=== PATIENT | female | born 1945 | race Caucasian/White ===

== ENCOUNTER 2020-02-17 09:38 | Outpatient (CLI) | payer MEDICARE ==
[2020-02-17] MEDS ORDERED: Iopamidol 300 61% 50 ML VIAL FS ONE (10:55)
[2020-02-17] MEDS ORDERED: Lidocaine 1% PF 10 ML AMP ONE (10:55)
[2020-02-17] MEDS ORDERED: EPINEPHrine 1 MG/ML AMP ONE (10:55)
--- NOTE | 2020-02-17 12:08 | RAD ---
LEFT SHOULDER ARTHROGRAM: HISTORY: Left shoulder pain. EXPOSURE: 1.1 minutes, 195.9 mGy*^m2. FINDINGS: Learning Strategist 3 views left shoulder demonstrate mild degenerative change. No fractures or dislocation. Visual ized left ribs and lung did not demonstrate an acute abnormality. Successful left shoulder arthrogram. A total of 12 cc of the contrast admixture was administered in t he joint space. No immediate or postprocedural complications. TECHNIQUE: Consent was obtained to perform a left shoulder arthrogram. Left shoulder was prepped and draped in a sterile fashion. 1% lidocaine, buffered with sodium bicarbonate was used for local anesthesia. Under fluoroscopic guidance, 22-gauge spinal needle was advanced into the joint space. A total of 12 cc of the contrast admixture was administered into the joint space. The patient tolerated the procedure well. No immediate or post procedure complications. IMPRESSION: Successful left shoulder arthrogram. Refer to separate post arthrogram CT for further detail. Transcribed Date/Time: 02/17/2020 12:48 PM
--- NOTE | 2020-02-17 13:30 | CT ---
CT ARTHROGRAM OF THE LEFT SHOULDER: 02/17/20 INDICATION: Left shoulder pain. COMPARISON: Left shoulder arthrogram radiograph dated 02/16/19. TECHNIQUE: Multiple CT images were obtained in the left shoulder following intra-articular administration of a d ilute Isovue solution. Please see the left shoulder arthrogram report for full details concerning the injection technique. FINDINGS: Glenohumeral articular surface is normal appearing. The rotator cuff is intact. No muscular atrophy i s evident. Biceps tendon is located. Visualized biceps anchor complex appears intact. No definite par alabral cyst is noted. No intra-articular body is demonstrated. Visualized left lung demonstrates moira cified granuloma in the left upper lobe. There is mild AC joint osteoarthrosis. IMPRESSION: 1. No full thickness rotator cuff tear. 2. Mild left AC joint osteoarthrosis. POS: C
== END 2020-02-17 09:39 | disposition home or self-care (01) ==
LOC: RAD 09:38
PROVIDERS: ATTEND Orthopaedic Surgery
DX: M25.512 Pain in left shoulder (principal); M19.012 Primary osteoarthritis, left shoulder
CPT/HCPCS: 23350; J0171; J2001; Q9967

== ENCOUNTER 2020-09-25 12:28 | Emergency (ER) | payer MEDICARE ==
[2020-09-25] MEDS ORDERED: Morphine 4 MG/ML VIAL ONE (12:46)
[2020-09-25] MEDS ORDERED: Boostrix 0.5 ML (Tdap) VIAL ONE (12:47)
[2020-09-25] MEDS ORDERED: Ondansetron PF 4 MG/2 ML Vial ONE ×2 (12:47→14:00)
[2020-09-25] MEDS ORDERED: CEFAZOLIN 1 GM VIAL ONE (12:47)
[2020-09-25 13:34] LABS: #Eosinphils 0.1 thou/uL (0.0-0.7); #Lymphocytes 1.7 thou/uL (1.20-3.40); #Monocytes 0.8 thou/uL (0.11-0.59); #Neutrophils 8.9 thou/uL (1.40-6.50); %Basophils 0.3 % (0.0-1.0); %Eosinophils 1.1 % (0.0-10.0); %Lymphocytes 14.8 % (21.0-51.0); %Monocytes 7.1 % (0.0-10.0); %Neutrophils 76.7 % (42.0-75.0); Hemoglobin 13.1 g/dL (12.0-16.0); Mean Corpuscular HGB CONC 33.6 g/dL (32.0-36.0); Mean Corpuscular Hemoglobin 31.9 pg (27.0-31.0); Mean Corpuscular Volume 94.9 fL (78.0-98.0); Mean Platelet Volume 8.2 fL (7.4-10.4); Platelet Count 177 thou/uL (130-400); RBC Distribution Width 11.9 % (11.5-14.5); Red Blood Cell (RBC) Count 4.12 mill/uL (4.20-5.40); White Blood Cell (WBC) Count 11.7 thou/uL (4.8-10.8)
--- NOTE | 2020-09-25 13:44 | RAD ---
RIGHT FOOT 3 VIEWS: Date: 09/25/2020 HISTORY: Foot pain. FINDINGS: There are displaced fractures at the ankle. See dedicated ankle films. Tarsals, metatarsals, and phalanges appear intact. IMPRESSION: 1. Displaced ankle fractures. See dedicated ankle exam. 2. No acute foot fracture identified. POS: AGW
--- NOTE | 2020-09-25 13:45 | RAD ---
RIGHT KNEE 4 VIEWS: Date: 09/25/2020 HISTORY: Injury to ankle with ankle fracture. FINDINGS: No evidence of fracture at the knee. Joint spaces are preserved. Minimal degenerative change. IMPRESSION: No acute abnormality of the right knee. POS: AGW
[2020-09-25 13:57] LABS: ALT (SGPT) 12 U/L (8-55); AST (SGOT) 16 U/L (5-34); Albumin 3.9 g/dL (3.4-4.8); Alkaline Phosphatase 65 U/L (40-110); Anion Gap 14 mmol/L (10-20); BUN (Urea Nitrogen) 19 mg/dL (9.8-20.1); Bilirubin, Total 0.5 mg/dL (0.2-1.2); Calc. Creatinine Clearance 0 mL/min (70-130); Calcium 9.2 mg/dL (7.8-10.44); Carbon Dioxide 28 mmol/L (23-31); Chloride 103 mmol/L (98-107); Globulin 2.4 g/dL (2.4-3.5); Glucose 111 mg/dL (83-110); Potassium 3.8 mmol/L (3.5-5.1); Protein, Total 6.3 g/dL (6.0-8.3); Sodium 141 mmol/L (136-145)
[2020-09-25] MEDS ORDERED: PROPOFOL 20 ML ONE (13:59)
[2020-09-25] MEDS ORDERED: Fentanyl 100 MCG/2 ML VIAL ONE (14:40)
[2020-09-25 14:57] LABS: CKMB 2.2 ng/mL (0-6.6)
[2020-09-25 15:10] LABS: Bilirubin Negative (Negative); Blood, Urine Negative (Negative); Clarity Clear (Clear); Glucose, Urine (Dipstick) Normal (Negative); Ketone, Urine Negative (Negative); Leukocyte Negative Leu/uL (Negative); Nitrite Negative (Negative); Protein, Urine (Dipstick) Negative (Neg-Trace); Specific Gravity, Urine 1.015 (1.002-1.036); Urobilinogen Normal mg/dL (Less than 2); pH, Urine 5.5 (5.0-9.0)
--- NOTE | 2020-09-25 16:21 | RAD ---
Exam:3 views right ankle HISTORY: Status post reduction. Ankle fracture. COMPARISON: 09/25/2020 at 12:45 PM FINDINGS: External cast material has been placed. Limited evaluation for fine bony detail. Previous n oted medial malleolus and distal fibular fracture are redemonstrated. There is persistent dislocation. Alignment has slightly improved. IMPRESSION: Interval placement of casting material. Persistent dislocation. Slightly improved alignme nt.
--- NOTE | 2020-09-25 16:24 | RAD ---
Exam: Chest one view HISTORY:Preoperative exam. Comparison: 02/20/2006 FINDINGS: Cardiac silhouette: Normal Aorta: Unremarkable Pulmonary vessels: Normal Costophrenic angles: Clear LUNGS: No masses or consolidation. Pneumothorax: None Osseous abnormalities: None. Dorsal column centimeters noted. IMPRESSION: No acute cardiopulmonary process.
[2020-09-25 16:42] LABS: Troponin I 0.036 ng/mL (< 0.028)
--- NOTE | 2020-09-26 07:16 | RAD ---
Exam: Right ankle 3 views: HISTORY: Pain following injury COMPARISON: None FINDINGS: Extensive bimalleolar fracture dislocation of the right ankle with disruption of the ankle mortise. P rominent soft tissue fullness of the lower leg and ankle. IMPRESSION: Markedly displaced bimalleolar fracture dislocation right ankle.
--- NOTE | 2020-09-26 07:21 | CON ---
DATE OF CONSULTATION: 09/25/2020 CONSULTING DIAGNOSIS: Right ankle deformity. HISTORY OF PRESENT ILLNESS: Ms. Winkler is a 75-year-old female status post fall after stepping on water today in her house, date of injury 09/25/2020. Pain is rated 10/10. The patient had gross deformity of her right ankle with swelling. Was brought to the ER for higher level of care. PAST MEDICAL HISTORY: Includes hypothyroidism and hyperlipidemia. PAST SURGICAL HISTORY: Hemorrhoidectomy, cyst excision, hysterectomy, shoulder surgery, and knee surgery, Dr. Macias unspecified. ALLERGIES: CIPRO, PENICILLIN, TRAZODONE. MEDICATIONS LIST: Please see admission medication list for full details. SOCIAL HISTORY: The patient is nonsmoker and nondrinker. The patient is retired. at bedside. REVIEW OF SYSTEMS: Negative for 10-point review except as above. PHYSICAL EXAMINATION: VITAL SIGNS: The patient's vital signs are blood pressure 120/50, 87 pulse, 14 rate, and O2 saturations 94% 3 L. GENERAL: Alert and oriented female, in no acute distress. EXTREMITIES: Right lower extremity, gross deformity, medial fracture blister with sanguineous drainage. No open wounds noted. Gross deformity with translation laterally. The patient able to wiggle her toes, has brisk cap refill. Sensation grossly intact. RADIOGRAPHS: Show a bimalleolar ankle fracture with lateral displacement. LABORATORY VALUES: Today her H and H 13 and 39 and platelets 177. INR 1. Post reduction films show improved alignment on AP and lateral radiographs with application of splint for bimalleolar ankle fracture. IMPRESSION: Right bimalleolar ankle fracture with acute swelling and fracture blisters. ASSESSMENT AND PLAN: The patient underwent a closed reduction of right ankle fracture dislocation. She will be discharged home with followup this Saturday. We will plan for operative fixation right ankle fracture and delayed because she has a negative wrinkle sign, concern for her swelling and her fracture blister resolved before proceeding. She will need to be nonweightbearing on that side. She will follow up my clinic on Saturday for a skin check and we will schedule her the following week. Job ID: [id number]
--- NOTE | 2020-09-26 07:40 | OP ---
DATE OF PROCEDURE: 09/25/2020 PREOPERATIVE DIAGNOSES: Right ankle bimalleolar ankle fracture with fracture blisters, swollen skin, no open wounds. POSTOPERATIVE DIAGNOSES: Right ankle bimalleolar ankle fracture with fracture blisters, swollen skin, no open wounds. PROCEDURE PERFORMED: Closed reduction, application of side slab and posterior splint. ANESTHESIA: Dr. Rodriguez, the patient received propofol. ESTIMATED BLOOD LOSS: None. IMPLANTS: None. COMPLICATIONS: None. Application of sugar tong splint. HISTORY OF PRESENT ILLNESS: Ms. Winkler is a 75-year-old female, status post fracture dislocation of right ankle. She was consented for a right ankle closed reduction and splinting for soft tissue rest. The patient understood the risks and benefits and elected to proceed. DESCRIPTION OF PROCEDURE: After time-out was performed designating the patient's the right lower extremity as the operative site, the patient had procedural propofol. Once relaxed, we translated the calcaneus medially, reducing the ankle into position, held by the toe. We rolled on Webril, fiberglass, and a posterior and U splint and then Tj wraps, we reduced the ankle, holding constant pressure, allowed it to form. We also applied a nonadherent dressing to her medial fracture blister to ensure that it did not adhere to the cast padding. The patient had postreduction x-rays that showed good alignment. She will be discharged to home with followup this Saturday for repeat evaluation. Job ID: [id number]
== END 2020-09-25 17:21 | disposition home or self-care (01) ==
LOC: ERS 12:28
DX: S82.841B Displaced bimalleolar fracture of right lower leg, initial encounter for open fracture type I or II (principal); E03.9 Hypothyroidism, unspecified; E78.5 Hyperlipidemia, unspecified; X50.1XXA Overexertion from prolonged static or awkward postures, initial encounter
CPT/HCPCS: 27840; 36415; 51701; 71045; 80053; 81003; 82553; 84484; 85025; 85610; 87086; 90471; 90715; 93005; 96361; 96365; 96375; 96376; 99156; J0690; J2270; J2405; J2704; J3010

== ENCOUNTER 2020-10-03 07:14 | Outpatient (CLI) | payer MEDICARE ==
[2020-10-03 14:06] LABS: Anion Gap 14 mmol/L (10-20); BUN (Urea Nitrogen) 19 mg/dL (9.8-20.1); Calc. Creatinine Clearance 0 mL/min (70-130); Calcium 9.1 mg/dL (7.8-10.44); Carbon Dioxide 26 mmol/L (23-31); Chloride 106 mmol/L (98-107); Glucose 124 mg/dL (83-110); Potassium 4.2 mmol/L (3.5-5.1); Sodium 142 mmol/L (136-145)
[2020-10-03 14:12] LABS: INR-International Normal Ratio 1.1; Prothrombin Time 11.8 sec (9.5-12.1)
[2020-10-03 15:21] LABS: #Eosinphils 0.2 10x3/uL (0.0-0.5); #Monocytes 0.5 10x3/uL (0.0-1.1); #Neutrophils 7.3 10x3/uL (1.5-8.4); %Basophils 0.4 % (0.0-2.0); %Lymphocytes 14.5 % (18.0-47.0); %Monocytes 5.2 % (0.0-10.0); %Neutrophils 77.5 % (40.0-75.0); Hemoglobin 11.7 g/dL (12.0-16.0); Mean Corpuscular HGB CONC 32.8 G/DL (32.0-36.0); Mean Corpuscular Hemoglobin 30.7 PG (27.0-33.0); Mean Corpuscular Volume 93.7 fl (80.0-100.0); Mean Platelet Volume 10.5 fl (7.4-10.4); Platelet Count 231 10x3/uL (130-400); Platelet Morphology Comment Appears Adequate; RBC Distribution Width 14.4 % (11.5-14.5); RBC Morphology Normal; Red Blood Cell (RBC) Count 3.81 10x6/uL (3.90-5.20); White Blood Cell (WBC) Count 9.4 10x3/uL (4.5-11.0)
[2020-10-04 06:31] LABS: SARS-CoV-2 MS2 Positive; SARS-CoV-2 N Gene Negative; SARS-CoV-2 S Gene Negative; SARS-CoV-2 by NAA Not Detected (NotDetected); SARS-CoV-2 orf1ab Negative
== END 2020-10-03 07:15 | disposition home or self-care (01) ==
LOC: LABBT 07:14
PROVIDERS: ATTEND Orthopaedic Surgery
DX: Z01.818 Encounter for other preprocedural examination (principal); Z01.812 Encounter for preprocedural laboratory examination; S82.851A Displaced trimalleolar fracture of right lower leg, initial encounter for closed fracture; Z20.828 Contact with and (suspected) exposure to other viral communicable diseases
CPT/HCPCS: 80048; 85025; 85610; 93005; U0003; 87635; 93010

== ENCOUNTER 2020-10-06 07:45 | Day surgery (SDC) | payer MEDICARE ==
[2020-10-05 12:57] VITALS: BMI 39.6
[2020-10-06] MEDS ORDERED: Lidocaine 1% (PF) 30 ML VIAL ONE (08:29)
[2020-10-06] MEDS ORDERED: Midazolam HCl 2 mg/2 ml Vial ONE (08:29)
[2020-10-06] MEDS ORDERED: Fentanyl 100 MCG/2 ML VIAL ONE ×3 (08:29→12:59)
[2020-10-06] MEDS ORDERED: Dexmedetomidine 200 MCG/2 ML VIAL ONE (09:33)
[2020-10-06] MEDS ORDERED: Clindamycin/D5W 600 mg/50 ml Premix Bag ONE (09:38)
[2020-10-06] MEDS ORDERED: Phenylephrine 10 MG/ML VIAL ONE (09:56)
[2020-10-06] MEDS ORDERED: Fentanyl 100 MCG/2 ML VIAL IV PRN (10:10)
[2020-10-06] MEDS ORDERED: HYDROcodone/Acetaminophen 5/325 mg Tablet PO PRN ×2 (10:15)
[2020-10-06] MEDS ORDERED: Promethazine HCl 25 MG/ML VIAL IM PRN (10:15)
[2020-10-06] MEDS ORDERED: Ketorolac Tromethamine 30 MG/ML VIAL IVP PRN (10:15)
[2020-10-06] MEDS ORDERED: traMADol HCl 50 MG TAB PO PRN ×2 (10:15)
[2020-10-06] MEDS ORDERED: Ondansetron PF 4 MG/2 ML Vial IVP PRN (10:15)
[2020-10-06] MEDS ORDERED: Ropivacaine 0.2% 550 ML 550 ML NERVE BLCK SCH (10:15)
[2020-10-06] MEDS ORDERED: Zolpidem Tartrate 5 MG TAB PO PRN (10:15)
[2020-10-06] MEDS ORDERED: Dexamethasone 20 MG/5 ML VIAL ONE (11:03)
[2020-10-06] MEDS ORDERED: PROPOFOL 200 MG/20 ML VIAL ONE (11:03)
[2020-10-06] MEDS ORDERED: Ondansetron PF 4 MG/2 ML Vial ONE (11:03)
[2020-10-06] MEDS ORDERED: Lidocaine 1% PF 5 ML VIAL ONE (11:03)
[2020-10-06] MEDS ORDERED: Bupivacaine HCl 0.5%/Epinephrine 1:200,000/PF 30 ml Vial ONE (11:03)
[2020-10-06] MEDS ORDERED: Ketorolac Tromethamine 30 MG/ML VIAL ONE (11:03)
[2020-10-06] MEDS ORDERED: ePHEDrine 50 MG/ML VIAL ONE ×2 (11:03→11:44)
--- NOTE | 2020-10-06 12:36 | RAD ---
EXAM: 3 views of the right ankle HISTORY: ORIF of ankle fracture COMPARISON: 09/25/2020 FINDINGS: 3 limited intraoperative fluoroscopic views of the right ankle shows the patient is status post ORIF of the medial malleolus fracture with screws and of the lateral malleolus fracture with plates and screws. There is normal alignment of the ankle mortise. The fracture of the posterior mall eolus is difficult to visualize. IMPRESSION: Status post ORIF of ankle fracture without evidence of complication.
--- NOTE | 2020-10-06 13:09 | OP ---
DATE OF PROCEDURE: 10/06/2020 PREOPERATIVE DIAGNOSIS: Right trimalleolar ankle fracture. POSTOPERATIVE DIAGNOSIS: Right trimalleolar ankle fracture. PROCEDURE PERFORMED: Open reduction and internal fixation of right trimalleolar ankle fracture medial malleolus and nonoperative management of posterior malleolus. TOOLROOM MACHINIST: Catarino Aponte PA-C ANESTHESIOLOGIST: Jacob Rainey MD ANESTHESIA: The patient received an LMA with a single-shot saphenous. ESTIMATED BLOOD LOSS: Less than 30 mL. TOURNIQUET TIME: 62 minutes at 300 mmHg. ANTIBIOTICS: Clindamycin 600 mg. IMPLANTS: Two 4-0 cannulated screws; a 2.7 VA-LCP lateral distal fibula plate, 4-holes, right. The patient had four 2.7 locking screws placed. She had a 3.5 cortical screw that was in and out for a lag screw and she had another 3.5 cortical screw to the plate, and two more 2.7 nonlocking screws proximally. COMPLICATIONS: None. HISTORY OF PRESENT ILLNESS: Ms. Winkler is a 75-year-old female, status post ground level fall with a right ankle fracture dislocation. The patient was splinted and remained splinted until she followed up in my office. She fell on 09/25 and the patient had a fracture blister at that time. The patient presented to the ER, was closed reduced, brought into my clinic last [place] and noted to have improved fracture blister. We popped the fracture blister and allowed her skin to epithelialize. I discussed the risks and benefits of a right ankle fracture surgery to include pain, scar, bleeding, infection, damage to vital structures, decreased range of motion and strength, continued pain despite surgical intervention, need for further surgeries, loss of life or limb, and need for hardware removal. She understood the risks and benefits and elected to proceed. DESCRIPTION OF PROCEDURE: Time-out was performed designating the patient's right lower extremity as the operative site based on site, consents, and marking. After time-out was performed, the patient's tourniquet was brought up and left for a total of 62 minutes. At first, it was up for 3 minutes, then went down and then it was back up for 62 minutes, which controlled the bleeding. We made a lateral incision, which was bleeding, which took up after we controlled bleeding for 3 minutes, controlled bleeding down, and went back up for a period of time. I discussed the risks and benefits of the surgery for ORIF. She understood the risks and benefits and elected to proceed. She understood that we are going to do limited percutaneous fixation medially to try to decrease any risk of the fracture blister on that side. We had lateral incision, with which we controlled the bleeding. After we controlled the bleeding, we placed a lag screw anterior to posterior after reducing the and cleared all the hematoma. We liked the reduction, placed a distal fibular plate to help with apposition of the bone for poor bone quality, placed a 3.5 screw to compress it down to the bone, placed four 2.7 locking screws distally and two more 2.7 cortical screws proximally. We actually removed our anterior-posterior lag screw in and out. Immediately under fluoroscopic guidance, we put percutaneous pins. We actually put 3 separate pins, inserted the pins, and they were within the posterior malleolus in a good position to hold the bone in place with reduced fracture fragment giving the best reduction we can percutaneously to decrease the risk of skin and wound problems. We felt that we had good overall near anatomic reduction. We pinned it in place, over drilled and placed 40 and 36 mm 4.0 partially-threaded screws, closed the fracture, tamped down, washed, closed the skin laterally, and closed with 0 and 2-0 in skin. We placed the patient in a well-padded posterior splint. The patient will be discharged to home. She is to be nonweightbearing to her right lower extremity. Job ID: [id number] [facility]
== END 2020-10-06 14:45 | disposition home or self-care (01) ==
LOC: SDC 07:45
PROVIDERS: ATTEND Orthopaedic Surgery
PROC: 0QSG04Z Reposition Right Tibia with Internal Fixation Device, Open Approach (ICD-10-PCS; principal; 2020-10-06)
PROC: 3E0T3BZ Introduction of Anesthetic Agent into Peripheral Nerves and Plexi, Percutaneous Approach (ICD-10-PCS; 2020-10-06)
PROC: 3E0T3BZ Introduction of Anesthetic Agent into Peripheral Nerves and Plexi, Percutaneous Approach (ICD-10-PCS; 2020-10-06)
DX: S82.851A Displaced trimalleolar fracture of right lower leg, initial encounter for closed fracture (principal); G89.18 Other acute postprocedural pain; F32.9 Major depressive disorder, single episode, unspecified; M79.7 Fibromyalgia; E03.9 Hypothyroidism, unspecified; M81.0 Age-related osteoporosis without current pathological fracture; E78.5 Hyperlipidemia, unspecified; Z86.73 Personal history of transient ischemic attack (TIA), and cerebral infarction without residual deficits; Z87.891 Personal history of nicotine dependence; Z79.82 Long term (current) use of aspirin; Z79.899 Other long term (current) drug therapy; Z88.0 Allergy status to penicillin; Z88.1 Allergy status to other antibiotic agents; Z88.8 Allergy status to other drugs, medicaments and biological substances; W18.30XA Fall on same level, unspecified, initial encounter
CPT/HCPCS: 27822; 64446; 64447; 73610; 76000; A4306; C1713 ×3; C1769; J1100; J1885; J2001; J2250; J2370; J2405; J2704; J2795; J3010; J3490

== ENCOUNTER 2021-06-20 09:25 | Outpatient (CLI) | payer MEDICARE | END 2021-06-20 09:26 | disposition home or self-care (01) | LOC: BICMAMMO 09:25 | PROVIDERS: ATTEND Family Medicine | DX: Z12.31 Encounter for screening mammogram for malignant neoplasm of breast (principal); Z13.820 Encounter for screening for osteoporosis; M85.89 Other specified disorders of bone density and structure, multiple sites; Z91.89 Other specified personal risk factors, not elsewhere classified | CPT/HCPCS: 77063; 77067; 77080 ==